=== PATIENT | male | born 2000 | race Two or more races ===

== ENCOUNTER 2021-01-09 15:46 | Emergency (ER) | payer SELFPAY ==
[~2021-01-09] VITALS: Ht 170.2 cm; Wt 68.0 kg
[2021-01-09 15:49] VITALS: BP 118/68
== END 2021-01-09 18:28 | disposition left against medical advice (07) ==
LOC: ER 15:46
DX: M79.671 Pain in right foot (principal); Z53.21 Procedure and treatment not carried out due to patient leaving prior to being seen by health care provider